=== PATIENT | male | born 1975 | race Hispanic/Latino ===

== ENCOUNTER 2018-02-15 14:09 | Emergency (ER) | payer SELFPAY ==
[~2018-02-15] VITALS: Ht 172.7 cm; Wt 100.0 kg
[~2018-02-15 14:09] MED LIST: AMOXICILLIN500 MG PO; CEPHALEXIN500 MG PO; DOXYCYCL HYC100 MG PO; KEFLEX250 MG PO; LORTAB 10 PO; NO; PERCOCET 5/325M1 TAB OR; ROBITUSSIN AC10 ML PO; VICOPROFEN PO
[2018-02-15] MEDS ORDERED: AUGMENTIN875TAB PO (14:22)
[2018-02-15] MEDS ORDERED: ZPAK PO (14:22)
[2018-02-15 14:25] VITALS: BP 116/80
== END 2018-02-15 14:30 | disposition home or self-care (01) | DRG 195 ==
LOC: ED 14:09
DX: J18.9 Pneumonia, unspecified organism (principal)

== ENCOUNTER 2018-12-15 19:25 | Emergency (ER) | payer OTHER ==
[~2018-12-15] VITALS: Ht 172.7 cm; Wt 110.0 kg
[~2018-12-15 19:25] MED LIST changes: +AUGMENTIN875TAB PO; +ZPAK PO
[2018-12-15 19:38] VITALS: BP 123/87
[2018-12-15] MEDS ORDERED: TAM75CAP PO (20:29)
[2018-12-15] MEDS ORDERED: CEPHALEXIN500 M1 PO (20:29)
[2018-12-15] MEDS ORDERED: ROBITUSSIN AC10 ML PO (20:29)
== END 2018-12-15 20:30 | disposition home or self-care (01) ==
LOC: ED 19:25
DX: J06.9 Acute upper respiratory infection, unspecified (principal); R05 Cough; J02.9 Acute pharyngitis, unspecified; R51 Headache

== ENCOUNTER 2019-01-13 19:03 | Emergency (ER) | payer OTHER ==
[~2019-01-13] VITALS: Ht 172.7 cm; Wt 109.8 kg
[~2019-01-13 19:03] MED LIST changes: +CEPHALEXIN500 M1 PO; +TAM75CAP PO
[2019-01-13] MEDS ORDERED: CEPHALEXIN500 M1 PO (20:40)
[2019-01-13] MEDS ORDERED: ROBITUSSIN AC10 ML PO (20:40)
[2019-01-13 21:00] VITALS: BP 138/79
[2019-01-14] MEDS ORDERED: TORADOL PO (14:03)
== END 2019-01-13 21:00 | disposition home or self-care (01) ==
LOC: ED 19:03
DX: J40 Bronchitis, not specified as acute or chronic (principal); R05 Cough; R51 Headache; J02.9 Acute pharyngitis, unspecified

== ENCOUNTER 2019-01-14 13:05 | Emergency (ER) | payer OTHER ==
[~2019-01-14] VITALS: Ht 172.7 cm; Wt 109.0 kg
[2019-01-14 13:45] LABS: URINE BLOOD DIPSTICK NEGATIVE (NEGATIVE); URINE COLOR YELLOW; URINE GLUCOSE - DIPSTICK NEGATIVE (NEGATIVE); URINE KETONE TRACE mg/dL (NEGATIVE); URINE LEUK ESTERASE NEGATIVE (NEGATIVE); URINE NITRITE - DIPSTICK NEGATIVE (Negative); URINE PH 6.5 (4.5-8.0); URINE PROTEIN - DIPSTICK 30 mg/dL (NEG-TRACE); URINE SPECIFIC GRAVITY 1.025
[2019-01-14 13:50] LABS: URINE BILIRUBIN - DIPSTICK NEGATIVE (NEGATIVE)
[2019-01-14 13:56] LABS: URINE RBC 0-2 RBC/hpf (0-5); URINE WBC 0-2 WBC/hpf (0-5)
[2019-01-14] MEDS ORDERED: TORADOL PO (14:03)
[2019-01-14 14:09] VITALS: BP 125/80
== END 2019-01-14 14:15 | disposition home or self-care (01) ==
LOC: ED 13:05
PROVIDERS: Family Medicine
DX: S29.012A Strain of muscle and tendon of back wall of thorax, initial encounter (principal); S39.012A Strain of muscle, fascia and tendon of lower back, initial encounter; R05 Cough; X50.3XXA Overexertion from repetitive movements, initial encounter

== ENCOUNTER 2022-10-04 09:04 | Day surgery (SDC) | payer SELFPAY ==
[~2022-10-04] VITALS: Ht 172.7 cm; Wt 99.8 kg
[~2022-10-04 09:04] MED LIST changes: +MULTI VIT PO; +TORADOL PO; +[UNRECOGNIZED DRUG - OTHER]
[2022-10-04] MEDS ORDERED: PERCOCET 5/321 COMBO PO (11:24)
[2022-10-04 12:17] VITALS: BP 129/85
== END 2022-10-04 12:30 | disposition home or self-care (01) | DRG 355 ==
LOC: ORM 09:04
PROVIDERS: ATTEND Surgery
PROC: 0WUF0JZ Supplement Abdominal Wall with Synthetic Substitute, Open Approach (ICD-10-PCS; principal; 2022-10-04)
DX: K43.9 Ventral hernia without obstruction or gangrene (principal); K42.9 Umbilical hernia without obstruction or gangrene
CPT/HCPCS: J0131; J0690

== ENCOUNTER 2023-04-21 20:04 | Emergency (ER) | payer MEDICAID ==
[~2023-04-21] VITALS: Ht 172.7 cm; Wt 108.0 kg
[~2023-04-21 20:04] MED LIST changes: +PERCOCET 5/321 COMBO PO
[2023-04-21 20:43] LABS: BASO% 0.3 % (0-3); EOS% 0.2 % (0-8); IMMATURE GRANULOCYTES 0.3 % (0.0-5.0); LYMPH% 7.5 % (15-41); MEAN CELL VOLUME 83.9 fL CALC (80.0-100.0); MEAN CORPUSCULAR HGB 29.2 pG CALC (26.0-32.0); MEAN CORPUSCULAR HGB CONC 34.8 g/dL CAL (32.0-36.0); NEUT# 16.22 thou/uL (1.82-7.42); NEUT% 88.7 % (42-76); RED BLOOD COUNT 6.6 mill/uL (4.70-6.10)
[2023-04-21 20:44] LABS: HEMATOCRIT 55.4 % (39.0-50.0); HEMOGLOBIN 19.3 g/dl (14.0-18.0)
[2023-04-21 20:51] LABS: ALBUMIN 4.5 g/dL (3.2-5.0); ALKALINE PHOSPHATASE 53 u/l (38-126); ANION GAP 18 (6-22 (CALC)); BILIRUBIN, TOTAL 0.5 mg/dL (0.2-1.3); BUN 12 mg/dL (9-20); BUN/CREATININE RATIO 12 (12-20 (CALC)); CARBON DIOXIDE 21 mmol/l (22-30); CHLORIDE 108 mmol/l (95-108); GFR FOR AFR.AMER. > 60 ML/MIN (>=60 (CALC)); GFR OTHER RACES > 60 ML/MIN (>=60 (CALC)); POTASSIUM 4.2 mmol/l (3.5-5.1); SGOT/AST 38 u/l (17-59); SODIUM 142 mmol/l (137-146); TOTAL PROTEIN 7.4 g/dL (6.3-8.2)
[2023-04-21 21:00] LABS: ACT PARTIAL THROMBO TIME 25.9 SECONDS (20.0-32.5); INTERNATIONAL NORMALIZED RATIO 1.1 RATIO (0.7-1.3); PROTHROMBIN TIME 10.1 SECONDS (9.0-12.5)
[2023-04-22 00:01] VITALS: BP 118/66
== END 2023-04-22 00:05 | disposition short-term general hospital (02) ==
LOC: ED 20:04
PROVIDERS: Internal Medicine
DX: S92.511B Displaced fracture of proximal phalanx of right lesser toe(s), initial encounter for open fracture (principal); W32.0XXA Accidental handgun discharge, initial encounter; Y93.89 Activity, other specified; Y92.009 Unspecified place in unspecified non-institutional (private) residence as the place of occurrence of the external cause
CPT/HCPCS: J0690

== ENCOUNTER 2023-10-14 07:25 | Emergency (ER) | payer MEDICAID ==
[~2023-10-14] VITALS: Ht 172.7 cm; Wt 104.0 kg
[2023-10-14] VITALS (7 sets, daily range): BP systolic 109–129; BP diastolic 67–85
[2023-10-14] MEDS ORDERED: KETOROLAC TROMETHAMINE 30 MG/ML SDV IM ONE (09:40)
[2023-10-14] MEDS ORDERED: ACETAMINOPHEN 500 MG TAB PO ONE (09:40)
[2023-10-14] MEDS ORDERED: TRAMADOL HYDROC50 M1 PO (11:13)
[2023-10-14] MEDS ORDERED: NAPROXEN500 MG PO (11:14)
[2023-10-14] MEDS ORDERED: ONDANSETRON 4 MG/TAB ODT PO ONE (11:15)
[2023-10-14] MEDS ORDERED: MORPHINE SULFATE 4 MG/ML VIAL IM ONE (11:15)
== END 2023-10-14 11:50 | disposition home or self-care (01) ==
LOC: ED 07:25
DX: S30.0XXA Contusion of lower back and pelvis, initial encounter (principal); W51.XXXA Accidental striking against or bumped into by another person, initial encounter; Y93.66 Activity, soccer; Y92.830 Public park as the place of occurrence of the external cause